=== PATIENT | female | born 1960 | race Caucasian/White ===

== ENCOUNTER 2023-03-10 07:21 | Emergency (ER) | payer MEDICAID ==
[2023-03-10] MEDS ORDERED: HYDROmorphone 1 MG/ML Syringe IM ONE (07:49)
[2023-03-10] MEDS ORDERED: Cyclobenzaprine 10 MG Tab PO ONE (07:50)
[2023-03-10] MEDS ORDERED: Ketorolac 60 MG/2 ML SDV IM ONE (07:50)
[2023-03-10] MEDS ORDERED: Ondansetron 4 MG Tab.DIS PO ONE (08:39)
[2023-03-10] MEDS ORDERED: Sodium Chloride 0.9% 10 ML Syringe FLUSH PRN (09:23)
[2023-03-10] MEDS ORDERED: Sodium Chloride 0.9% 1,000 ML IV ONE (09:23)
[2023-03-10] MEDS ORDERED: diphenhydrAMINE 50 MG/ML SDV IVPUSH ONE (09:24)
[2023-03-10] MEDS ORDERED: Metoclopramide 10 MG/2 ML SDV IVPUSH ONE (09:24)
== END 2023-03-10 11:53 | disposition home or self-care (01) ==
LOC: JD.ED 07:21
DX: M54.41 Lumbago with sciatica, right side (principal); Z87.891 Personal history of nicotine dependence
CPT/HCPCS: 96372; 96374; 96375; 99283; A9270; J1170; J1200; J1885; J2765; J3490; J7030; 99282